=== PATIENT | male | born 1985 | race Caucasian/White ===

== ENCOUNTER 2016-09-03 07:35 | Outpatient (CLI) | payer OTHER | END 2016-09-03 07:36 | disposition home or self-care (01) | DX: M51.24 Other intervertebral disc displacement, thoracic region (principal); G95.9 Disease of spinal cord, unspecified; M48.54XD Collapsed vertebra, not elsewhere classified, thoracic region, subsequent encounter for fracture with routine healing; M51.34 Other intervertebral disc degeneration, thoracic region; M41.84 Other forms of scoliosis, thoracic region ==